=== PATIENT | male | born 2000 | race American Indian/Alaskan Native ===

== ENCOUNTER 2021-07-13 18:25 | Emergency (ER) | payer SELFPAY ==
[2021-07-13] MEDS ORDERED: HALOPERIDOL LACTATE 5 MG/1 ML INJ IM ONE (19:18)
[2021-07-13] MEDS ORDERED: SODIUM CHLORIDE 0.9% 1000 ML 1,000 ML IV ONE (19:18)
--- NOTE | 2021-07-13 19:44 | Emergency Department Report ---
ED Abdominal Pain HPI - General Chief Complaint: Abdominal Pain Stated Complaint: ABD PAIN/VOMITING Time Seen by Provider: 07/13/21 19:04 Source: EMS Mode of arrival: Stretcher Limitations: No Limitations - History of Present Illness Initial Comments: 21-year-old male presents to ED with abdominal pain, nausea and vomiting since this morning. Patient denies any sick contacts. Patient does not think it is secondary to food poisoning. Patient is reporting pain to the left side of his abdomen. Patient smells of marijuana. Reports he does smoke marijuana. He denies any previous diagnosis of cannabinoid hyperemesis syndrome. Patient denies any fever or diarrhea. MD Complaint: abdominal pain -: This morning Location: LUQ, LLQ Radiation: none Migration to: no migration Quality: cramping Consistency: constant Improves With: nothing Worsens With: nothing Associated Symptoms: nausea, vomiting Treatments Prior to Arrival: other (Zofran, 500 cc NS) - Related Data Previous Rx's Medication Instructions Recorded Last Taken Type Dicyclomine [Bentyl] 20 mg PO QID PRN #20 tablet 07/13/21 Unknown Rx Naproxen [Naprosyn] 500 mg PO BID #20 tablet 07/13/21 Unknown Rx Ondansetron [Zofran Odt] 4 mg PO Q8HR PRN #20 tab.rapdis 07/13/21 Unknown Rx Allergies Allergy/AdvReac Type Severity Reaction Status Date / Time No Known Allergies Allergy Verified 07/13/21 18:36 ED Review of Systems ROS: Stated complaint: ABD PAIN/VOMITING Other details as noted in HPI Comment: All other systems reviewed and negative Constitutional: denies: chills, fever Gastrointestinal: abdominal pain, nausea, vomiting. denies: diarrhea Genitourinary: denies: dysuria, hematuria ED Past Medical Hx - Past Medical History Previous Medical History?: No - Surgical History Past Surgical History?: No - Social History Smoking Status: Unknown if ever smoked Substance Use Type: None - Medications Home Medications: Home Medications Medication Instructions Recorded Confirmed Last Taken Type Dicyclomine [Bentyl] 20 mg PO QID PRN #20 tablet 07/13/21 Unknown Rx Naproxen [Naprosyn] 500 mg PO BID #20 tablet 07/13/21 Unknown Rx Ondansetron [Zofran Odt] 4 mg PO Q8HR PRN #20 tab.rapdis 07/13/21 Unknown Rx ED Physical Exam - General Limitations: No Limitations General appearance: alert, other (Rolling around on stretcher, appears uncomfortable, smells of marijuana) - Head Head exam: Present: atraumatic, normocephalic - Eye Eye exam: Present: normal appearance, EOMI - ENT ENT exam: Present: mucous membranes moist - Neck Neck exam: Present: normal inspection - Respiratory Respiratory exam: Present: normal lung sounds bilaterally. Absent: respiratory distress - Cardiovascular Cardiovascular Exam: Present: regular rate, normal rhythm - GI/Abdominal GI/Abdominal exam: Present: soft, tenderness (LLQ, LUQ). Absent: distended - Extremities Exam Extremities exam: Present: normal inspection - Neurological Exam Neurological exam: Present: alert, oriented X3 - Psychiatric Psychiatric exam: Present: normal affect, normal mood - Skin Skin exam: Present: warm, dry, intact, normal color ED Course Vital Signs 07/13/21 07/13/21 18:38 23:58 Temperature 98.4 F Pulse Rate 85 86 Respiratory 22 16 Rate Blood Pressure 110/68 98/62 [Left] O2 Sat by Pulse 98 98 Oximetry ED Medical Decision Making - Lab Data Result diagrams: 07/13/21 19:54 07/13/21 19:54 - Radiology Data Radiology results: report reviewed, image reviewed - Medical Decision Making 21-year-old male presents to ED with nausea, vomiting, abdominal pain since this morning. Vital signs normal. Labs unremarkable. Patient was given Haldol IM and IV fluids for possible cannabinoid hyperemesis syndrome. Patient reported feeling much better following medication administration. CT was obtained which showed findings suggestive of chronic UPJ obstruction. No ureteral stones identified. UA negative for urine infection however there was evidence of many RBCs. Possibility of kidney stones in the differential. Patient will be discharged at this time with prescriptions. Outpatient follow-up advised, return precautions given. - Differential Diagnosis Gastroenteritis, cannabinoid hyperemesis syndrome, kidney stone Critical care attestation.: If time is entered above; I have spent that time in minutes in the direct care of this critically ill patient, excluding procedure time. ED Disposition Clinical Impression: Abdominal pain, Nausea and vomiting, Kidney stones Disposition: HOME / SELF CARE / HOMELESS Is pt being admited?: No Condition: Stable Instructions: Kidney Stones, Nausea and Vomiting, Adult, [id number], Abdominal Pain, Adult, [id number], Cannabinoid Hyperemesis Syndrome Prescriptions: Dicyclomine [Bentyl] 20 mg PO QID PRN #20 tablet PRN Reason: abdominal pain Naproxen [Naprosyn] 500 mg PO BID #20 tablet Ondansetron [Zofran Odt] 4 mg PO Q8HR PRN #20 tab.rapdis PRN Reason: Vomiting Referrals: [facility] [Provider Group] - 3-5 Days Time of Disposition: 23:37
[2021-07-13 20:25] LABS: Basophils % (Auto) 0.3 % (0.0-1.8); Eosinophils % (Auto) 0.1 % (0.0-4.3); Hematocrit 44.6 % (35.5-45.6); Hemoglobin 14.6 gm/dl (11.8-15.2); Lymphocytes % (Auto) 13.1 % (13.4-35.0); Mean Corpuscular HGB Conc 33 % (32-34); Mean Corpuscular Volume 91 fl (84-94); Monocytes # (Auto) 0.4 K/mm3 (0.0-0.8); Monocytes % (Auto) 5.1 % (0.0-7.3); Platelet Count 219 K/mm3 (140-440); Red Blood Count 4.88 M/mm3 (3.65-5.03); Red Cell Distribution Width 14.6 % (13.2-15.2)
[2021-07-13 20:51] LABS: Alanine Aminotransferase 14 units/L (7-56); Albumin 4.6 g/dL (3.9-5); BUN/Creatinine Ratio 11; Blood Urea Nitrogen 12 mg/dL (9-20); Hemolysis Index 43
[2021-07-13 20:52] LABS: Bilirubin,Direct < 0.2 mg/dL (0-0.2)
--- NOTE | 2021-07-13 21:47 | Cat Scan Report ---
CT abdomen pelvis w con INDICATION / CLINICAL INFORMATION: left sided abd pain. TECHNIQUE: Axial CT images were obtained through the abdomen and pelvis after 100 cc of Omnipaque [address] scans at this location are performed using CT dose reduction for ALARA by means of automated exposure control. COMPARISON: None available. FINDINGS: LOWER CHEST: No significant abnormality LIVER: No significant abnormality GALLBLADDER/BILIARY TREE: No significant abnormality PANCREAS: No significant abnormality SPLEEN: Multiple calcified granulomata noted throughout the spleen. ADRENALS: No significant abnormality KIDNEYS / URETER: 3 mm nonobstructive stone at the upper pole of the left kidney. Moderate left hydro nephrosis with transition to normal caliber ureter at the UPJ. No ureteral stone identified. There is no significant delayed enhancement of the left kidney. Findings are suggestive of chronic UPJ obstru ction. URINARY BLADDER: No significant abnormality REPRODUCTIVE ORGANS: No significant abnormality STOMACH / BOWEL: No significant abnormality. The appendix is normal in caliber. LYMPH NODES: No significant adenopathy. VASCULATURE: No significant abnormality. OTHER: No free air, free fluid, or focal fluid collection is identified. SKELETAL SYSTEM: No acute osseous findings. IMPRESSION: 1. Moderate left hydronephrosis with transition to normal caliber ureter at the UPJ. There is no uret eral stone identified. No significant delayed enhancement of the left kidney. Findings are suggestive of chronic UPJ obstruction. 2. 3 mm nonobstructive left renal stone. 3. Other incidental findings, as above. Signer Name: Chas Kasper MD Signed: 07/13/2021 9:43 PM Workstation Name: [id number]
[2021-07-13 23:03] LABS: Bilirubin,Urine NEG (Negative); Blood,Urine MOD (Negative); Color,Urine Yellow (Yellow); Mucus,Urine 3+ /HPF; Urobilinogen,Urine < 2.0 mg/dL (<2.0)
[2021-07-13 23:59] VITALS: BP 98/62
== END 2021-07-13 23:58 | disposition home or self-care (01) ==
LOC: ED 18:25
DX: R10.9 Unspecified abdominal pain (principal); R11.2 Nausea with vomiting, unspecified; N20.0 Calculus of kidney
CPT/HCPCS: 36415; 74177; 80048; 80076; 81001; 83690; 85025; 96360; 96372; 99284; J1630; J7030; Q9967; Q0162